=== PATIENT | male | born 1985 | race Caucasian/White ===

== ENCOUNTER 2020-12-19 20:27 | Emergency (ER) | payer MEDICAID, SELFPAY ==
--- NOTE | ~2020-12-19 | XR_ITS ---
MITZY DAVILA, accession# [id number] EXAMINATION: LEFT ANKLE CLINICAL INFORMATION: Pain and swelling COMPARISON: None TECHNIQUE: 3 plain film views of the left ankle obtained. FINDINGS: Soft tissue swelling is seen more so laterally. Underlying bony structures however are unremarkable. No evidence for fracture or dislocation. No bony destructive lesions or periosteal reaction. Ankle mortise appears intact. No significant effusion. XR/XR ankle LT 2V IMPRESSION: Soft tissue swelling but no acute bony abnormality
[2020-12-19 22:02] VITALS: BP 121/62; PULSE 88; RESP 15; TEMP 36.4; O2SAT 98; BMI 30.9
--- NOTE | 2020-12-19 22:06 | ED.LOWEXIN ---
HPI - Extremity Injury (Lower) General Chief Complaint: Extremity Injury, Lower Stated Complaint: Swollen ankle for 3 wks Time Seen by Provider: 12/19/20 22:00 Source: patient Mode of arrival: ambulatory Limitations: no limitations History of Present Illness HPI Narrative: 35-year-old male here with left ankle swelling x3 weeks status post injury. Patient tells me while at the [employer] park he had an inversion injury to the ankle. Since then he has had swelling which has continued. Denies any pain, numbness, tingling, redness, warmth. Related Data Allergies Allergy/AdvReac Type Severity Reaction Status Date / Time No Known Allergies Allergy Verified 12/19/20 22:11 Review of Systems Review of Systems: Yes all other systems are reviewed and are negative Constitutional: Constitutional: Reports no additional constitutional complaints, Denies body ache(s), Denies chills, Denies fever(s), Denies headache(s) and Denies weakness Eyes: Eyes: Reports no additional eye complaints and Denies change in vision ENT: Reports system reviewed and no additional complaints, except as documented, Denies dizziness, Denies headache(s), Denies nasal congestion, Denies nasal discharge and Denies neck pain Cardiovascular: Cardiovascular: Reports no additional cardiovascular complaints, Denies chest pain, Denies leg edema and Denies dyspnea Respiratory: Respiratory: Reports no additional respiratory complaints, Denies cough and Denies dyspnea Gastrointestinal: Gastrointestinal: Reports no additional gastrointestinal complaints, Denies abdominal pain, Denies diarrhea, Denies nausea and Denies vomiting Genitourinary: Genitourinary: Denies urinary incontinence Musculoskeletal: Musculoskeletal: Reports no additional musculoskeletal complaints, Denies back pain, Denies arthralgias, Reports joint swelling, Denies limited range of motion, Denies neck pain, Denies numbness and Denies tingling Integumentary/Breasts: Skin/Breast: Reports system reviewed and no additional complaints, except as docu and Denies rash Neurologic: Reports system reviewed and no additional complaints, except as documented, Denies Abnormal speech present, Denies dizziness, Denies headache(s), Denies numbness, Denies tingling and Denies weakness PMFSH Past Medical History Attestation statement: The following information was validated with the patient. Source: old records reviewed and nursing notes reviewed Medical History No known health problems Social History Social History Advance Directives: No Advance Directives Information Provided: Yes Physical Exam Vital Signs: Vital Signs: Last Vital Signs Temp 97.5 F 12/19/20 22:02 Pulse 88 12/19/20 22:02 Resp 15 12/19/20 22:02 BP 121/62 12/19/20 22:02 Pulse Ox 98 12/19/20 22:02 Body Mass Index 30.9 Const: General: cooperative, healthy appearing, comfortable and no acute distress Orientation/consciousness: patient oriented x3 Limitations: no limitations HENMT: Head: Yes normal to inspection Ears: hearing grossly normal bilaterally General nose exam: Normal external nose present Face and sinus: Yes normal facial exam Mouth: Normal oral and palatal mucosa present Throat: Yes posterior oropharynx normal Eyes: General: appearance normal, both eyes and all related structures Pupils: Equal, round and reactive pupils present Neck: Neck: Yes normal visual inspection Chest: Chest palpation & inspection: normal inspection of the chest Resp: Effort & Inspection: normal respiratory effort Auscultation: clear to auscultation bilaterally Cardio: Rate: regular rate Rhythm: regular rhythm Peripheral pulses: Peripheral pulses 2+ throughout GI: Inspection: Yes normal to inspection Palpation (GI): Soft to palpation and nontender Auscultation: normal bowel sounds Back/Spine/Pelvis: Thoracic/Lumbar Spine: thoracic and lumbar spine normal to inspection Skin: General skin exam: no rashes or lesions noted Neuro: General: patient oriented x3, no focal motor deficits and normal sensation to monofilament Cranial nerves: Yes Equal, round and reactive pupils present Cognition (Neuro): normal cognition Speech: No Abnormal speech present Gait exam (Neuro): Normal gait present Motor exam (neuro): 5/5 motor strength present throughout Extrem: Other: Swelling to the left lateral ankle. Full range of motion. No palpable tenderness, ecchymosis or warmth. Negative Alanis test. Palpable pulses distally. Normal cap refill. General: Yes normal to inspection Course Course Course Narrative: 35 yo male here with left ankle swelling s/p inversion injury 3 weeks ago. Will check x-rays Procedures Procedure Narrative Procedure Narrative: Rayo wrap and crutches with training MDM - Extremity Injury (Lower) Medical Records Attestation: I reviewed the patient's medical records. Lab Data Attestation: I reviewed the patient's lab results. Imaging Data left ankle x-ray: Attestation: I personally reviewed and interpreted this imaging study as follows: Radiologist's impression: Soft tissue swelling but no acute bony abnormality Discharge Plan Discharge Clinical Impression: Ankle sprain and strain Patient Disposition: Home, Self-Care Instructions: Ankle Sprain (ED) Additional Instructions: Ice 20 minutes on 20 minutes off Elevation on 3 more pillows Limit weight-bearing Follow-up with orthopedics in 7 days if no improvement in pain Take Motrin for pain as needed Referrals: Florencio Catherine MD [Physician] - 1 week (if no better) Interventions: ED Discharge Assessment Last Done: 12/19/20 22:31 Discharge Date/Time: 12/19/20 22:38
== END 2020-12-19 22:38 | disposition home or self-care (01) ==
PROVIDERS: Emergency Provider Emergency Medicine
DX: S93.402A Sprain of unspecified ligament of left ankle, initial encounter (principal); S96.912A Strain of unspecified muscle and tendon at ankle and foot level, left foot, initial encounter; Y93.44 Activity, trampolining; Y92.39 Other specified sports and athletic area as the place of occurrence of the external cause; Y99.8 Other external cause status
CPT/HCPCS: 73600; 99283

== ENCOUNTER 2021-09-18 13:15 | Outpatient (REF) | payer MEDICAID, SELFPAY ==
[2021-09-18 15:53] LABS: Binax Internal Control QC Valid; Binax Now Covid-19 Ag Positive (Negative)
== END 2021-09-18 13:16 | disposition home or self-care (01) ==
LOC: HO.LAB 13:15
PROVIDERS: Visit Provider Internal Medicine
DX: Z20.822 Contact with and (suspected) exposure to COVID-19 (principal)
CPT/HCPCS: 36415; C9803